=== PATIENT | female | born 1970 | race Caucasian/White ===

== ENCOUNTER 2021-06-29 16:11 | Emergency (ER) | payer OTHER ==
[2021-06-29] MEDS ORDERED: Aspirin 81 MG Tab.Chew PO STA (16:36)
--- NOTE | 2021-06-29 16:46 | EDM.PDOC ---
<Tien Almanza - Last Filed: 06/29/21 16:40> ED HPI GENERAL MEDICAL PROBLEM - General Chief Complaint: Chest Pain Stated Complaint: CHEST PAINS,JAW HURTING Time Seen by Provider: 06/29/21 16:35 Source of Information: Reports: Patient History Limitations: Reports: No Limitations - History of Present Illness INITIAL COMMENTS - FREE TEXT/NARRATIVE: This 51 yo female patient reports to the ED due to chest pain. The patient reports she was at home doing laundry when she started to notice some chest pain and tightness. The patient reports the pain radiated up into her jaw then around her entire chest. The patient reports her pain had subsided by the time she got to the ED, but she reports she can still feel some tightness in her chest and in her lower jaw. The patient reports she has has similar episodes in the past, but none of them had lasted this long. The patient did not take anything for temporary symptom relief. Onset: Today Onset Date: 06/29/21 Onset Time: 14:00 Duration: Improving Location: Reports: Face (lower jaw), Chest Quality: Reports: Ache, Dull, Pressure Severity: Severe Improves with: Reports: None Worsens with: Reports: None Context: Reports: Other Associated Symptoms: Reports: Chest Pain chest/jaw Pain Score (Numeric/FACES): 8 - Related Data Allergies Allergy/AdvReac Type Severity Reaction Status Date / Time No Known Allergies Allergy Verified 06/29/21 16:35 Home Meds: Home Meds atorvaSTATin [Lipitor] 10 mg PO BEDTIME 06/29/21 [History] ED ROS GENERAL - Review of Systems Review Of Systems: Comprehensive ROS is negative, except as noted in HPI. ED EXAM, GENERAL - Physical Exam Exam: See Below Exam Limited By: No Limitations General Appearance: Alert, WD/WN, Anxious, Moderate Distress Eye Exam: Bilateral Eye: EOMI, Normal Inspection, PERRL Ears: Normal External Exam, Normal Canal, Hearing Grossly Normal, Normal TMs Nose: Normal Inspection, Normal Mucosa, No Blood Throat/Mouth: Normal Inspection, Normal Lips, Normal Teeth, Normal Gums, Normal Oropharynx, Normal Voice, No Airway Compromise Head: Atraumatic, Normocephalic Neck: Normal Inspection, Supple, Non-Tender, Full Range of Motion Respiratory/Chest: No Respiratory Distress, Lungs Clear, Normal Breath Sounds, No Accessory Muscle Use, Chest Non-Tender Cardiovascular: Normal Peripheral Pulses, Regular Rate, Rhythm, No Edema, No Gallop, No JVD, No Murmur, No Rub GI/Abdominal: Normal Bowel Sounds, Soft, Non-Tender, No Organomegaly, No Distention, No Abnormal Bruit, No Mass (Female) Exam: Deferred Rectal (Female) Exam: Deferred Back Exam: Normal Inspection, Full Range of Motion, NT Extremities: Normal Inspection, Normal Range of Motion, Non-Tender, Normal Capillary Refill, No Pedal Edema Neurological: Alert, Oriented, CN II-XII Intact, Normal Cognition, Normal Gait, Normal Reflexes, No Motor/Sensory Deficits Psychiatric: Normal Affect, Normal Mood Skin Exam: Warm, Dry, Intact, Normal Color, No Rash Lymphatic: No Adenopathy #1 Interpretation EKG Date: 06/29/21 Time: 16:29 Rhythm: NSR Rate (Beats/Min): 76 [place]: Normal P-Wave: Present QRS: Normal ST-T: Normal QT: Normal Comparison: NA - No Prior EKG Departure - Departure Disposition: Home, Self-Care 01 Clinical Impression: Non-cardiac chest pain GERD (gastroesophageal reflux disease) Qualifiers: Esophagitis presence: esophagitis presence not specified Qualified Code(s): K21.9 - Gastro-esophageal reflux disease without esophagitis Instructions: Nonspecific Chest Pain, Adult, [id number], Gastroesophageal Reflux Disease, Adult, [id number] Forms: ED Department Discharge Additional Instructions: Maalox or Mylanta for acute symptoms of heartburn as shown today. Omeprazole 1 tablet daily for the next 27 days. Stay away from anything rich spicy fatty. If pain does not resolve or worsens especially with physical exertion and does not improve with Maalox or Mylanta recheck in the emergency department. Return emergency department new or worsening symptoms. Follow-up primary care provider in the next week if not improving sooner if worse Sepsis Event Note (ED) - Evaluation Sepsis Screening Result: No Definite Risk <Kenneth Alexander - Last Filed: 06/29/21 20:10> Course - Vital Signs Last Recorded V/S: Last Vital Signs Temp 98.0 F 06/29/21 16:28 Pulse 84 06/29/21 16:28 Resp 16 06/29/21 16:28 BP 135/94 H 06/29/21 16:28 Pulse Ox 96 06/29/21 16:28 - Orders/Labs/Meds Labs: Laboratory Tests 06/29/21 06/29/21 06/29/21 Range/Units 16:26 16:26 16:26 WBC 7.4 (5.0-10.0) 10^3/uL RBC 4.89 (4.2-5.4) 10^6/uL Hgb 14.6 (12.0-16.0) g/dL Hct 44.6 (37.0-47.0) % MCV 91.2 (80-100) fL MCH 29.9 (27.0-34.0) pg MCHC 32.7 L (33.0-35.0) g/dL Plt Count 257 (150-450) 10^3/uL Neut % (Auto) 64.5 (42.2-75.2) % Lymph % (Auto) 26.1 (20.5-50.1) % [place] % (Auto) 7.9 (2-8) % Eos % (Auto) 1.1 (1.0-3.0) % Baso % (Auto) 0.4 (0.0-1.0) % PT 10.3 (9.0-12.0) SEC INR 1.0 (0.9-1.2) D-Dimer, Quantitative < 100 (0-400) ng/mL Sodium 142 (136-145) mmol/L Potassium 4.0 (3.5-5.1) mmol/L Chloride 105 (98-107) mmol/L Carbon Dioxide 29 (21-32) mmol/L Anion Gap 12.0 (7-13) mEq/L BUN 9 (7-18) mg/dL Creatinine 0.93 (0.55-1.02) mg/dL Est Cr Clr Drug Dosing 64.40 mL/min Estimated GFR (MDRD) > 60 BUN/Creatinine Ratio 9.7 (No establ ref range) Glucose 127 H (70-99) mg/dL Calcium 8.9 (8.5-10.1) mg/dL Total Bilirubin 0.2 (0.2-1.0) mg/dL AST 12 L (15-37) U/L ALT 21 (14-59) U/L Alkaline Phosphatase 95 (46-116) U/L Troponin I High Sens 4 (<=51) pg/mL Total Protein 6.9 (6.4-8.2) g/dL Albumin 3.7 (3.4-5.0) g/dL Globulin 3.2 Albumin/Globulin Ratio 1.2 / Range/Units 18:29 WBC (5.0-10.0) 10^3/uL RBC (4.2-5.4) 10^6/uL Hgb (12.0-16.0) g/dL Hct (37.0-47.0) % MCV (80-100) fL MCH (27.0-34.0) pg MCHC (33.0-35.0) g/dL Plt Count (150-450) 10^3/uL Neut % (Auto) (42.2-75.2) % Lymph % (Auto) (20.5-50.1) % [place] % (Auto) (2-8) % Eos % (Auto) (1.0-3.0) % Baso % (Auto) (0.0-1.0) % PT (9.0-12.0) SEC INR (0.9-1.2) D-Dimer, Quantitative (0-400) ng/mL Sodium (136-145) mmol/L Potassium (3.5-5.1) mmol/L Chloride (98-107) mmol/L Carbon Dioxide (21-32) mmol/L Anion Gap (7-13) mEq/L BUN (7-18) mg/dL Creatinine (0.55-1.02) mg/dL Est Cr Clr Drug Dosing mL/min Estimated GFR (MDRD) BUN/Creatinine Ratio (No establ ref range) Glucose (70-99) mg/dL Calcium (8.5-10.1) mg/dL Total Bilirubin (0.2-1.0) mg/dL AST (15-37) U/L ALT (14-59) U/L Alkaline Phosphatase (46-116) U/L Troponin I High Sens 5 (<=51) pg/mL Total Protein (6.4-8.2) g/dL Albumin (3.4-5.0) g/dL Globulin Albumin/Globulin Ratio Meds: Medications Discontinued Medications Generic Name Dose Route Start Last Admin Trade Name Freq PRN Reason Stop Dose Admin Al Hydroxide/Mg Hydroxide 30 ml 06/29/21 19:33 06/29/21 19:50 Gi Cocktail Oral Solution 30 Ml PO 06/29/21 19:34 30 ml ONETIME ONE Administration Aspirin 324 mg 06/29/21 16:36 06/29/21 16:43 Aspirin 81 Mg Tab.Chew PO 06/29/21 16:37 324 mg ONETIME STA Administration - Re-Assessments/Exams Free Text/Narrative Re-Assessment/Exam: 06/29/21 20:08 Assumed care of the patient at shift change. 1900 hrs. She is resting on the cot. She continues to have the bandlike sensation around her epigastric region as well as her midsternal and up into her neck. Her repeat troponin is negative at 5 high-sensitivity troponin her initial was 4. Patient was given a GI cocktail with complete resolution of ALL of her symptoms. She feels back to her baseline. As the GI cocktail has resolved her symptoms this is most likely heartburn in relation. Her repeat troponin is negative her EKG is normal. We will treat her symptomatically for heartburn. If it anytime she has recurrence of this and the Maalox Mylanta Gaviscon or omeprazole does not resolve and it gets worse with physical exertion she should recheck immediately. Discharge directions as below are explained to the patient she was comfortable with this plan and her questions were answered. Departure - Departure Time of Disposition: 20:05 Sepsis Event Note (ED) - Focused Exam Vital Signs: Vital Signs Temp Pulse Resp BP Pulse Ox 06/29/21 16:28 98.0 F 84 16 135/94 H 96
--- NOTE | 2021-06-29 17:00 | CR ---
PROCEDURE INFORMATION: Exam: XR Chest Exam date and time: 06/29/2021 4:33 PM Age: 51 years old Clinical indication: Other: Chest pain TECHNIQUE: Imaging protocol: XR of the chest. Views: 1 view. COMPARISON: No relevant prior studies available. FINDINGS: Lungs: Unremarkable. No consolidation. Pleural spaces: Blunting of the costophrenic angle is possibly due to small amount of pleural fluid. Heart/Mediastinum: Unremarkable. No cardiomegaly. Bones/joints: Unremarkable. IMPRESSION: Possible small left pleural effusion. Otherwise unremarkable chest.
[2021-06-29 17:01] LABS: CHLORIDE,CL 105 mmol/L (98-107); SODIUM,NA 142 mmol/L (136-145)
[2021-06-29] MEDS ORDERED: GI Cocktail Oral Solution 30 ML PO ONE (19:33)
== END 2021-06-29 20:12 | disposition home or self-care (01) ==
LOC: DL.ED 16:11
DX: R07.89 Other chest pain (principal); K21.9 Gastro-esophageal reflux disease without esophagitis; Z79.899 Other long term (current) drug therapy
CPT/HCPCS: 36415; 71045; 80053; 84484; 85025; 85379; 85610; 93005; 99285; A9270

== ENCOUNTER 2023-01-01 05:37 | Day surgery (SDC) | payer OTHER ==
[~2023-01-01 05:37] MED LIST: Sodium Chloride 0.9% 10 ML Syringe FLUSH PRN; Sodium Chloride 0.9% 10 ML Syringe FLUSH SCH
[2023-01-01] MEDS: Dextrose 5%-0.45% NaCl 1,000 ML IV SCH (05:58)
[2023-01-01] MEDS ORDERED: fentaNYL 100 MCG/2 ML SDV ONE (06:22)
[2023-01-01] MEDS ORDERED: Midazolam 1 MG/ML 2 ML SDV ONE (06:22)
[2023-01-01] MEDS: fentaNYL 100 MCG/2 ML SDV IV ONE ×5 (06:37→06:53)
[2023-01-01] MEDS: Midazolam 1 MG/ML 2 ML SDV IV ONE ×4 (06:38→06:46)
== END 2023-01-01 09:44 | disposition home or self-care (01) ==
LOC: DL.ENDO 05:37
PROVIDERS: ATTEND Internal Medicine Gastroenterology
DX: Z12.11 Encounter for screening for malignant neoplasm of colon (principal); D12.2 Benign neoplasm of ascending colon; E78.5 Hyperlipidemia, unspecified; F32.A Depression, unspecified; Z80.0 Family history of malignant neoplasm of digestive organs; Z98.890 Other specified postprocedural states
CPT/HCPCS: 45385; J2250; J3010; J7042